=== PATIENT | female | born 1945 | race Caucasian/White ===

== ENCOUNTER 2016-09-13 10:43 | Day surgery (SDC) | payer MEDICARE, SELFPAY ==
--- NOTE | ~2016-09-13 | EGD ---
EGD REPORT [facility] [address] [address] NAME: HANK CARDENAS : [birth year] STATUS : [place] [facility] [place] [id number] AGE: 71 ADM/REG DATE : 09/13/16 MR#: [id number] REPORT SERV DATE: 09/13/16 DICTATED BY: DEBI ORTIZ DATE: 09/13/16 REPORT STATUS : Draft TRANSCRIBED BY: [facility] DATE: 09/13/16 [facility] Patient Name: Hank Cardenas Date of : 1945 Attending MD: DEBI ORTIZ MD Procedure Date No Time: 09/13/2016 Procedure: Upper GI endoscopy Indications: Dysphagia, Follow-up of benign duodenal tumor, Tubular Adenoma of the duodenum S/P surgery Referring MD: RHONDA KIMBROUGH, LAYLA AHUMADA JR., MD Medicines: Propofol per Anesthesia Complications: No immediate complications. Procedure: After obtaining informed consent, the endoscope was passed under direct vision. Throughout the procedure, the patient's blood pressure, pulse, and oxygen saturations were monitored continuously. The GIF [id number] was introduced through the mouth, and advanced to the efferent jejunal loop. The upper GI endoscopy was accomplished without difficulty. The patient tolerated the procedure well. Findings: Non-severe esophagitis with no bleeding was found in the entire esophagus. A benign-appearing, intrinsic mild stenosis was found at the gastroesophageal junction and was traversed. A guidewire was placed and the scope was withdrawn. Dilation was performed with a Savary dilator with mild resistance at 60 Fr. A small hiatus hernia was present. Seen on retroflexion, done prior to dilation Evidence of a Billroth I anastomosis was found in the gastric body. The anastomosis was characterized by healthy appearing mucosa and an intact appearance. One 7 mm sessile polyp with no bleeding and no stigmata of recent bleeding was found on the lesser curvature of the stomach. Biopsies were taken with a cold forceps for histology. The anastomosis was normal. A single 3 mm sessile polyp with was found at the anastomosis. The polyp was removed with a cold biopsy forceps. Resection and retrieval were complete. The examined duodenum was normal. Impression: - Non-severe esophagitis. - Benign-appearing esophageal stricture. Dilated. - Hiatus hernia. EGD REPORT [address] [address] NAME: HANK CARDENAS : [birth year] STATUS : REG [facility]#: [id number] AGE: 71 ADM/REG DATE : 09/13/16 MR#: [id number] REPORT SERV DATE: 09/13/16 DICTATED BY: DEBI ORTIZ DATE: 09/13/16 REPORT STATUS : Draft TRANSCRIBED BY: [employer] DATE: 09/13/16 - A Billroth I anastomosis was found, anastomosis characterized by healthy appearing mucosa and an intact appearance. - One gastric polyp. Biopsied. - Normal anastomosis. - A single duodenal polyp. Resected and retrieved. - Normal examined duodenum. Recommendation: - Patient has a contact number available for emergencies. The signs and symptoms of potential delayed complications were discussed with the patient. Return to normal activities tomorrow. Written discharge instructions were provided to the patient. - diet is clear liquid today, full liquid tomorrow, soft mushy food the next day, and resume usual diet the day after that. - Continue present medications. - Await pathology results. - Return to my office as previously scheduled. - Discharge patient to home. Procedure Code(s): --- Professional --- 06273, Esophagogastroduodenoscopy, flexible, transoral; with insertion of guide wire followed by passage of dilator(s) through esophagus over guide wire 37734, Esophagogastroduodenoscopy, flexible, transoral; with biopsy, single or multiple Diagnosis Code(s): --- Professional --- K20.9, Esophagitis, unspecified K22.2, Esophageal obstruction K44.9, Diaphragmatic hernia without obstruction or gangrene Z98.0, Intestinal bypass and anastomosis status K31.7, Polyp of stomach and duodenum R13.10, Dysphagia, unspecified D13.2, Benign neoplasm of duodenum CPT copyright 2013 [employer]. All rights reserved. The codes documented in this report are preliminary and upon accountant property review may be revised to meet current compliance requirements. Debi Ortiz MD DEBI ORTIZ MD EGD REPORT [facility] [address] [address] NAME: HANK CARDENAS : [birth year] [place]US : [place] [facility] [place]#: [id number] AGE: 71 ADM/REG DATE : 09/13/16 MR#: [id number] REPORT SERV DATE: 09/13/16 DICTATED BY: DEBI ORTIZ DATE: 09/13/16 REPORT STATUS : Draft TRANSCRIBED BY: [employer] DATE: 09/13/16 09/13/2016 1:17 PM This report has been signed electronically. Number of Addenda: 0 Note Initiated On: 09/13/2016 12:19 PM Scope Withdrawal Time 0 hours 0 minutes 0 seconds [address] [address]
[~2016-09-13 10:43] MED LIST: AMARYL4 PO; ASAB PO; B 12 SC; B121000P IM; CHOLESTEROL MED PO; COD LIVER PO; COZ25 PO; CRESTOR20 MG PO; EZFE 200200 MG PO; FLONASE NAS; GERITOL COMPLETE PO; GLUCOPHAGE1000 MG PO; GLUCPH PO; HYDROCHLOROT25 MG PO; HYDROCORTISONE30 GM TOP; INSNOV7030 SC; JANUVIA100 MG PO; KLOR-CON 1010 MEQ PO; KOMBIGLYZE XR1 EAC1 PO; L40 PO; LOPID6 PO; LOVAZA1 GM PO; MAG-DELAY PO; MAG6464 MG PO; MAGOX4 PO; MAXIMUM D3 PO; MONO20 PO; NEXIUM40 PO; NORCO1 TA1 PO; NORV5 PO; PCET PO; PRAVACHOL40 MG PO; PROTONIX PO; SALINE NASAL SPRAY; SINGULAIR1 PO; SUCR PO; VITAMIN B-121000 MC1 SL; VITC500 PO; XANAX1 MG PO
== END 2016-09-13 23:59 | disposition home or self-care (01) ==
LOC: DMU 10:43
PROVIDERS: Internal Medicine Gastroenterology
PROC: 0D748ZZ Dilation of Esophagogastric Junction, Via Natural or Artificial Opening Endoscopic (ICD-10-PCS; 2016-09-13)
PROC: 0DB68ZX Excision of Stomach, Via Natural or Artificial Opening Endoscopic, Diagnostic (ICD-10-PCS; principal; 2016-09-13 11:00)
DX: K29.50 Unspecified chronic gastritis without bleeding (principal); K22.2 Esophageal obstruction; K44.9 Diaphragmatic hernia without obstruction or gangrene; G43.909 Migraine, unspecified, not intractable, without status migrainosus; E78.00 Pure hypercholesterolemia, unspecified; I10 Essential (primary) hypertension; K20.9 Esophagitis, unspecified; Z98.0 Intestinal bypass and anastomosis status; Z88.0 Allergy status to penicillin; Z88.5 Allergy status to narcotic agent
CPT/HCPCS: 82962; 88305; 88342; J2405